=== PATIENT | male | born 1980 | race Caucasian/White ===

== ENCOUNTER 2020-07-17 08:03 | Day surgery (SDC) | payer BC ==
[2020-07-10 14:52] LABS: BASOPHILS % (AUTO) 0.7 % (0-1); EOSINOPHILS # (AUTO) 0.3 X10'3 (0-0.9); EOSINOPHILS % (AUTO) 4.2 % (0-6); LYMPHOCYTES # (AUTO) 1.7 X10'3 (1.1-4.8); MEAN CORPUSCULAR HEMOGLOBIN 31.2 PG (27.0-31.0); MEAN CORPUSCULAR HGB CONC 33.6 g/dL (33.0-36.5); MEAN PLATELET VOLUME 9.4 FL (7.4-10.4); MONOCYTES # (AUTO) 0.6 X10'3 (0-0.9); NEUTROPHILS # (AUTO) 4.6 X10'3 (1.8-7.7); NEUTROPHILS % (AUTO) 64.1 % (42-75); PRE OP HEMATOCRIT 53.2 % (42.0-52.0); PRE OP HEMOGLOBIN 17.9 g/dL (14.0-17.9); PRE OP PLATELET COUNT 226 X10'3 (140-440); RED BLOOD COUNT 5.72 X10'6 (4.70-6.10); RED CELL DISTRIBUTION WIDTH 13.3 % (11.5-14.5)
[2020-07-10 15:01] LABS: PRE OP INR 1.1 INR
[2020-07-10 15:04] LABS: ALBUMIN/GLOBULIN RATIO 1.2 (1.1-1.5); ALKALINE PHOSPHATASE 98 IU/L (46-116); BLOOD UREA NITROGEN 28 MG/DL (7-18); BUN/CREATININE RATIO 24.3 (5.4-32.0); CALCIUM 9.6 MG/DL (8.5-10.1); CHLORIDE 105 MMOL/L (99-107); CREATININE 1.15 MG/DL (0.60-1.10); PRE OP ALT 46 U/L (30-65); PRE OP ANION GAP 6 (8-16); PRE OP AST 47 U/L (10-37); PRE OP BILIRUB, TOTAL 0.7 MG/DL (0.0-1.0); PRE OP GLUCOSE 84 MG/DL (70-104); PRE OP SODIUM 139 MMOL/L (135-145); TOTAL CARBON DIOXIDE 28.5 MMOL/L (24-32); TOTAL PROTEIN 7.4 G/DL (6.4-8.2); eGFR 71 ML/MIN
[~2020-07-17] VITALS: Ht 175.3 cm; Wt 97.5 kg
[2020-07-17] VITALS (10 sets, daily range): BP systolic 126–167; BP diastolic 76–94
[~2020-07-17 08:03] MED LIST: ERGO400C PO; LIDOcaine 1% W/epiNEPHrine 1:100,000 20ml vial ONE; OMEG-79 PO; TEST200V10 IM; cefTAZidime 1gm inj ONE; cocaine 4% topical solution 4ml bottle ONE; famotidine 20mg tablet PO ONE; mupirocin 2% ointment 22GM ONE; oxymetazoline 15 ML nasal spray NS ONE; oxymetazoline 15 ML nasal spray NS PRN; ringers solution, lacted 1,000 ML IV SCH
[2020-07-17] MEDS ORDERED: fentaNYL/PF 50MCG/1 ML 2ML syringe ONE ×2 (10:53→11:26)
[2020-07-17] MEDS ORDERED: midazolam 1 mg/ML 2ml injection ONE (10:53)
[2020-07-17] MEDS ORDERED: morphine 2 MG/ML inj. syringe IV PRN (11:50)
[2020-07-17] MEDS ORDERED: meperidine/PF 25mg/ml syringe IV PRN ×3 (11:50)
[2020-07-17] MEDS ORDERED: hydrALAZINE 20mg/ml inj. IV PRN (11:50)
[2020-07-17] MEDS ORDERED: labetalol 20mg/4ml (5mg/ml) syringe IV PRN (11:50)
[2020-07-17] MEDS ORDERED: ringers solution, lacted 1,000 ML IV SCH (11:50)
[2020-07-17] MEDS ORDERED: ondansetron/PF 4mg/2ml inj IV PRN (11:50)
[2020-07-17] MEDS ORDERED: morphine 4 MG/ML inj SYRINge IV PRN (11:50)
[2020-07-17] MEDS ORDERED: dexamethasone sod phosphate 4mg/ml inj. ONE (12:01)
[2020-07-17] MEDS ORDERED: propofol inj 20 ML IV ONE (12:01)
[2020-07-17] MEDS ORDERED: ondansetron/PF 4mg/2ml inj ONE (12:01)
[2020-07-17] MEDS ORDERED: LIDOcaine 2% (20mg/ml) 5ml vial ONE (12:01)
--- NOTE | 2020-07-17 12:48 | NUR ---
Received from OR via GER IN STABLE CONDITION , accompanied by Anesthesiologist and SOCIAL SCIENCES DEPARTMENT CHAIR report given by Alex. Addendum: 07/17/20 at 1312 by Tenisha Foy RN Amended: Links added.
[2020-07-17] MEDS ORDERED: naloxone 0.4 mg/ml inj ONE (13:19)
--- NOTE | 2020-07-17 13:46 | NUR ---
NASAL PACKING REMOVED. NO BLEEDING NOTED. Addendum: 07/17/20 at 1351 by Tenisha Foy RN Amended: Links added.
[2020-07-17] MEDS ORDERED: salt irrigation nasal spray 45 ML SPRAY NS PRN (14:30)
--- NOTE | 2020-07-17 14:48 | NUR ---
PATIENT DISCHARGED FROM PACU IN STABLE CONDITION AFTER WRITTEN AND VERBAL DISCHARGE INSTRUCTIONS GIVEN. PATIENT GAVE VERBAL UNDERSTANDING OF INSTRUCTIONS GIVEN INCLUDING HOW TO LAVAGE. PATIENT DID OCEAN SPRAY AND OINTMENT TO NARES BILATERALLY. PATIENT LEFT FACILITY IN WHEELCHAIR WITH RN. Addendum: 07/17/20 at 1456 by Tenisha Foy RN Amended: Links added.
== END 2020-07-17 14:48 | disposition home or self-care (01) ==
LOC: PAS 08:03
PROVIDERS: ATTEND Otolaryngology
DX: J34.2 Deviated nasal septum (principal); J34.3 Hypertrophy of nasal turbinates; Z20.822 Contact with and (suspected) exposure to COVID-19; Z79.899 Other long term (current) drug therapy; Z79.01 Long term (current) use of anticoagulants
CPT/HCPCS: 30140; 30520; 36415; 80053; 82948; 85025; 85576; 85610; 85730; A6402; C9250; J0713; J1100; J2001; J2250; J2310; J2405; J2704; J3010; J7120; U0003; U0005; A4618; A7000

== ENCOUNTER 2020-07-31 19:23 | Emergency (ER) | payer BC ==
[~2020-07-31] VITALS: Ht 175.3 cm; Wt 97.3 kg
[~2020-07-31 19:23] MED LIST changes: -LIDOcaine 1% W/epiNEPHrine 1:100,000 20ml vial ONE; -cefTAZidime 1gm inj ONE; -cocaine 4% topical solution 4ml bottle ONE; -famotidine 20mg tablet PO ONE; -mupirocin 2% ointment 22GM ONE; -oxymetazoline 15 ML nasal spray NS ONE; -oxymetazoline 15 ML nasal spray NS PRN; +phenylephrine inj 0.2 MG in normal saline 50ml IV soln 10 ML IC ONE; -ringers solution, lacted 1,000 ML IV SCH
[2020-07-31] MEDS ORDERED: PHENYLEPHRINE IV ONE (19:50)
[2020-07-31] MEDS ORDERED: LIDOcaine 1% 30ml preserv. free vial IJ ONE (19:50)
[2020-07-31] MEDS ORDERED: NORMAL SALINE IV ONE (19:50)
[2020-07-31] MEDS ORDERED: NORMAL SALINE IC ONE (20:20)
[2020-07-31] MEDS ORDERED: PHENYLEPHRINE IC ONE (20:20)
[2020-07-31 22:46] VITALS: BP 115/58
== END 2020-07-31 22:05 | disposition home or self-care (01) ==
LOC: ER 19:24
DX: N48.30 Priapism, unspecified (principal); Z79.899 Other long term (current) drug therapy
CPT/HCPCS: 99281